=== PATIENT | male | born 2000 ===

== ENCOUNTER 2019-12-12 11:47 | Emergency (ER) | payer BC ==
[2019-12-12 13:39] LABS: BLOOD UREA NITROGEN,BUN 11 mg/dL (7.0-18.0); CARBON DIOXIDE,CO2 31.7 mmol/L (21.0-32.0); CHLORIDE,CL 100 mmol/L (98-107); GLUCOSE RANDOM 103 mg/dL (74-106); POTASSIUM,K 4.2 mmol/L (3.5-5.1); SODIUM,NA 137 mmol/L (136-148)
--- NOTE | 2019-12-12 14:03 | CR ---
Indication: Syncope. Technique: AP portable views of the chest. Comparison: None Findings: The heart is normal size. The lungs are hyperinflated. No infiltrate, pleural effusion, or pneumothorax is identified. Impression: Hyperinflation. Dictated by Susan Norton MD @ Dec 12 2019 2:02PM Signed by Dr. Susan Norton @ Dec 12 2019 2:03PM
--- NOTE | 2019-12-12 14:09 | CT ---
INDICATION: Dizziness COMPARISON: none TECHNIQUE: A CT volumetric acquisition was performed of the brain without IV contrast. FINDINGS: There is no evidence of a subdural or epidural hematoma. There is no evidence of subarachnoid hemorrhage or intraparenchymal bleeding. The CT images reveal a normal appearance of the cerebral ventricles and basal cisterns. There is no evidence of localized tissue infarction or mass effect. There is normal gerber white matter differentiation. The mastoid air cells and middle ear cavities are clear. The calvarium appears intact. There is normal aeration of the visualized paranasal sinuses. IMPRESSION: Negative head CT. Please note that all CT scans at this facility use dose modulation, iterative reconstruction, and/or weight-based dosing when appropriate to reduce radiation dose to as low as reasonably achievable. Dictated by Betito Ash MD @ Dec 12 2019 1:57PM Signed by Dr. Betito Ash @ Dec 12 2019 2:07PM
[2019-12-12] MEDS ORDERED: Ketorolac 60 MG/2 ML SDV IM ONE (14:19)
--- NOTE | 2019-12-12 14:27 | EDM.PDOC ---
ED HPI GENERAL MEDICAL PROBLEM - General Chief Complaint: General Stated Complaint: BLACKED OUT; LEG PAIN Time Seen by Provider: 12/12/19 11:54 Source of Information: Reports: Patient History Limitations: Reports: No Limitations - History of Present Illness INITIAL COMMENTS - FREE TEXT/NARRATIVE: HISTORY AND PHYSICAL: History of present illness: Patient is a 19-year-old male who presents to the ED today with concern of a syncopal event that occurred yesterday morning during a work meeting. Patient states he was standing still for about an hour when he began to feel lightheaded and like he was going to lose consciousness. Patient states that he did lose consciousness and fell on the ground and hit his head. Patient states he was told by a coworker he was unconscious for a brief second before he regained consciousness. Patient states that he has an abrasion to the left side of his face but states he does not have any pain of this area. Patient states when he woke up this morning, the back of his leg muscles felt like they were "spasming "which he feels like is related to the fall. Patient denies any knee pain but states his hamstring muscles feel tight and painful to massage them. Patient denies any health history. Patient denies fever, chills, chest pain, shortness of breath, or cough. Denies headache, neck stiff ness, change in vision. Denies nausea, vomiting, abdominal pain, diarrhea, constipation, or dysuria. Has not noted any blood in urine or stool. Patient has been eating and drinking appropriately. Review of systems: As per history of present illness and below otherwise all systems reviewed and negative. Past medical history: As per history of present illness and as reviewed below otherwise noncontributory. Surgical history: As per history of present illness and as reviewed below otherwise noncontributory. Social history: See social history for further information Family history: As per history of present illness and as reviewed below otherwise noncontributory. Physical exam: General: Patient is alert, oriented, and in no acute distress. Patient sitting comfortably on exam table. HEENT: There is a superficial abrasion over the patient's left zygomatic bone without crepitus, step-offs, or pain to palpation. Otherwise, atraumatic, normocephalic, pupils equal and reactive bilaterally, negative for conjunctival pallor or scleral icterus, mucous membranes moist, TMs normal bilaterally, throat clear, neck supple, nontender, trachea midline. No drooling or trismus noted. No meningeal signs. No hot potato voice noted. Lungs: Clear to auscultation, breath sounds equal bilaterally, chest nontender. Heart: S1S2, regular rate and rhythm without overt murmur Abdomen: Soft, nondistended, nontender. Negative for masses or hepatosplenomegaly. Negative for costovertebral tenderness. Pelvis: Stable nontender. Genitourinary: Deferred. Rectal: Deferred. Skin: Intact, warm, dry. No lesions or rashes noted. Extremities: No obvious deformity of the complete bilateral lower extremities. Patient does have tenderness with palpation of bilateral hamstring muscle bodies. Patient does have full range of motion of complete bilateral lower extremities without pain or difficulty. Dorsalis pedis and posterior tibial pulses are grossly intact bilaterally with capillary refill less than 2 seconds. Otherwise, atraumatic, negative for cords or calf pain. Neurovascular unremarkable. Neuro: Awake, alert, oriented. Cranial nerves II through XII unremarkable. Cerebellum unremarkable. Motor and sensory unremarkable throughout. Exam nonfocal. Notes: Discussed importance for follow-up with primary care provider. Voices understanding and is agreeable to plan of care. Denies any further questions or concerns at this time. Diagnostics: EKG, CBC, CMP, UA, troponin, CPK, CXR, head/facial bone CT Therapeutics: Toradol Prescription: Diclofenac, Flexeril Impression: Syncope Head injury Hamstring spasm, bilateral Plan: 1. Rest, ice and or heat, elevate the affected areas. You can apply ice and or heat 15 minutes on, 15 minutes off. 2. Tylenol as directed for pain management or discomfort. Take medication as prescribed. You can use diclofenac as directed for pain and discomfort. Do not use any other NSAIDs along with diclofenac such as ibuprofen, aspirin, or naproxen. Caution with using Flexeril. This medication can cause drowsiness so caution when outside of the home. Do not drive any vehicles or heavy equipment while using Flexeril. 3. Follow up with the primary care provider as discussed. Return to the ED as needed and as discussed. Definitive disposition and diagnosis as appropriate pending reevaluation and review of above. Bilateral Leg Pain Score (Numeric/FACES): 7 - Related Data Allergies Allergy/AdvReac Type Severity Reaction Status Date / Time No Known Allergies Allergy Verified 12/12/19 12:35 Home Meds: Home Meds Cyclobenzaprine [Flexeril] 10 mg PO TID PRN #9 tab 12/12/19 [Rx] Diclofenac Sodium [Voltaren] 75 mg PO BIDMEALS PRN #15 tab.cr 12/12/19 [Rx] Past Medical History - Past Health History Medical/Surgical History: Denies Medical/Surgical History HEENT History: Reports: None Neurological History: Reports: None Psychiatric History: Reports: None Endocrine/Metabolic History: Reports: None Dermatologic History: Reports: None - Infectious Disease History Infectious Disease History: Reports: None - Past Surgical History HEENT Surgical History: Reports: Adenoidectomy, Tonsillectomy Neurological Surgical History: Reports: None Musculoskeletal Surgical History: Reports: Shoulder Surgery Social & Family History - Tobacco Use Smoking Status *Q: Unknown Ever Smoked - Caffeine Use Caffeine Use: Reports: None ED ROS GENERAL - Review of Systems Review Of Systems: Comprehensive ROS is negative, except as noted in HPI. ED EXAM, GENERAL - Physical Exam Exam: See Below (see dictation) Course - Vital Signs Last Recorded V/S: Last Vital Signs Temp 97.0 F 12/12/19 12:37 Pulse 70 12/12/19 12:37 Resp 17 12/12/19 12:37 BP 140/61 12/12/19 12:37 Pulse Ox 98 12/12/19 12:37 - Orders/Labs/Meds Orders: Active Orders 24 hr Category Date Time Status EKG Documentation Completion [RC] STAT Care 12/12/19 12:42 Active Max Facial Sinus wo Cont [CT] Routine Exams 12/12/19 14:49 Ordered Labs: Laboratory Tests 12/12/19 12/12/19 12/12/19 Range/Units 13:02 13:02 13:02 WBC 8.98 (4.0-11.0) K/uL RBC 5.19 (4.50-5.90) M/uL Hgb 16.3 (13.0-17.0) g/dL Hct 48.0 (38.0-50.0) % MCV 92.5 (80.0-98.0) fL MCH 31.4 (27.0-32.0) pg MCHC 34.0 (31.0-37.0) g/dL RDW Std Deviation 46.9 (28.0-62.0) fl RDW Coeff of Nigel 14 (11.0-15.0) % Plt Count 210 (150-400) K/uL MPV 9.50 (7.40-12.00) fL Neut % (Auto) 70.4 (48.0-80.0) % Lymph % (Auto) 18.2 (16.0-40.0) % Fergus % (Auto) 9.6 (0.0-15.0) % Eos % (Auto) 1.6 (0.0-7.0) % Baso % (Auto) 0.2 (0.0-1.5) % Neut # (Auto) 6.3 H (1.4-5.7) K/uL Lymph # (Auto) 1.6 (0.6-2.4) K/uL Fergus # (Auto) 0.9 H (0.0-0.8) K/uL Eos # (Auto) 0.1 (0.0-0.7) K/uL Baso # (Auto) 0.0 (0.0-0.1) K/uL Nucleated RBC % 0.0 /100WBC Nucleated RBCs # 0 K/uL Sodium 137 (136-148) mmol/L Potassium 4.2 (3.5-5.1) mmol/L Chloride 100 (98-107) mmol/L Carbon Dioxide 31.7 (21.0-32.0) mmol/L BUN 11 (7.0-18.0) mg/dL Creatinine 1.1 (0.8-1.3) mg/dL Est Cr Clr Drug Dosing 116.60 mL/min Estimated GFR (MDRD) > 60.0 ml/min Glucose 103 (74-106) mg/dL Calcium 9.0 (8.5-10.1) mg/dL Total Bilirubin 0.7 (0.2-1.0) mg/dL AST 24 (15-37) IU/L ALT 32 (14-63) IU/L Alkaline Phosphatase 57 (46-116) U/L Creatine Kinase 127 (26-308) U/L Troponin I < 0.050 (0.000-0.056) ng/mL Total Protein 7.6 (6.4-8.2) g/dL Albumin 4.5 (3.4-5.0) g/dL Globulin 3.1 (2.6-4.0) g/dL Albumin/Globulin Ratio 1.5 (0.9-1.6) Urine Color Urine Appearance Urine pH (5.0-8.0) Ur Specific [place] (1.001-1.035) Urine Protein (NEGATIVE) mg/dL Urine Glucose (UA) (NEGATIVE) mg/dL Urine Ketones (NEGATIVE) mg/dL Urine Occult Blood (NEGATIVE) Urine Nitrite (NEGATIVE) Urine Bilirubin (NEGATIVE) Urine Urobilinogen (<2.0) EU/dL Ur Leukocyte Esterase (NEGATIVE) 12/12/19 Range/Units 13:51 WBC (4.0-11.0) K/uL RBC (4.50-5.90) M/uL Hgb (13.0-17.0) g/dL Hct (38.0-50.0) % MCV (80.0-98.0) fL MCH (27.0-32.0) pg MCHC (31.0-37.0) g/dL RDW Std Deviation (28.0-62.0) fl RDW Coeff of Nigel (11.0-15.0) % Plt Count (150-400) K/uL MPV (7.40-12.00) fL Neut % (Auto) (48.0-80.0) % Lymph % (Auto) (16.0-40.0) % [place] % (Auto) (0.0-15.0) % Eos % (Auto) (0.0-7.0) % Baso % (Auto) (0.0-1.5) % Neut # (Auto) (1.4-5.7) K/uL Lymph # (Auto) (0.6-2.4) K/uL [place] # (Auto) (0.0-0.8) K/uL Eos # (Auto) (0.0-0.7) K/uL Baso # (Auto) (0.0-0.1) K/uL Nucleated RBC % /100WBC Nucleated RBCs # K/uL Sodium (136-148) mmol/L Potassium (3.5-5.1) mmol/L Chloride (98-107) mmol/L Carbon Dioxide (21.0-32.0) mmol/L BUN (7.0-18.0) mg/dL Creatinine (0.8-1.3) mg/dL Est Cr Clr Drug Dosing mL/min Estimated GFR (MDRD) ml/min Glucose (74-106) mg/dL Calcium (8.5-10.1) mg/dL Total Bilirubin (0.2-1.0) mg/dL AST (15-37) IU/L ALT (14-63) IU/L Alkaline Phosphatase (46-116) U/L Creatine Kinase (26-308) U/L Troponin I (0.000-0.056) ng/mL Total Protein (6.4-8.2) g/dL Albumin (3.4-5.0) g/dL Globulin (2.6-4.0) g/dL Albumin/Globulin Ratio (0.9-1.6) Urine Color YELLOW Urine Appearance CLEAR Urine pH 8.0 (5.0-8.0) Ur Specific [place] 1.015 (1.001-1.035) Urine Protein NEGATIVE (NEGATIVE) mg/dL Urine Glucose (UA) NEGATIVE (NEGATIVE) mg/dL Urine Ketones NEGATIVE (NEGATIVE) mg/dL Urine Occult Blood NEGATIVE (NEGATIVE) Urine Nitrite NEGATIVE (NEGATIVE) Urine Bilirubin NEGATIVE (NEGATIVE) Urine Urobilinogen 0.2 (<2.0) EU/dL Ur Leukocyte Esterase NEGATIVE (NEGATIVE) Meds: Medications Discontinued Medications Generic Name Dose Route Start Last Admin Trade Name Freq PRN Reason Stop Dose Admin Ketorolac Tromethamine 60 mg 12/12/19 14:19 12/12/19 14:41 Toradol IM 12/12/19 14:20 60 mg ONETIME ONE Administration Departure - Departure Time of Disposition: 14:53 Disposition: Home, Self-Care 01 Clinical Impression: Syncope Qualifiers: Syncope type: unspecified Qualified Code(s): R55 - Syncope and collapse Head injury Qualifiers: Encounter type: initial encounter Qualified Code(s): S09.90XA - Unspecified injury of head, initial encounter Hamstring strain Qualifiers: Encounter type: initial encounter Laterality: unspecified laterality Qualified Code(s): S76.319A - Strain of muscle, fascia and tendon of the posterior muscle group at thigh level, unspecified thigh, initial encounter - Discharge Information Prescriptions: Cyclobenzaprine [Flexeril] 10 mg PO TID PRN #9 tab PRN Reason: Spasms Diclofenac Sodium [Voltaren] 75 mg PO BIDMEALS PRN #15 tab.cr PRN Reason: Pain Referrals: PCP,None [Primary Care Provider] - Forms: ED Department Discharge Additional Instructions: The following information is given to patients seen in the emergency department who are being discharged to home. This information is to outline your options for follow-up care. We provide all patients seen in our emergency department with a follow-up referral. The need for follow-up, as well as the timing and circumstances, are variable depending upon the specifics of your emergency department visit. If you don't have a primary care physician on staff, we will provide you with a referral. We always advise you to contact your personal physician following an emergency department visit to inform them of the circumstance of the visit and for follow-up with them and/or the need for any referrals to a consulting specialist. The emergency department will also refer you to a specialist when appropriate. This referral assures that you have the opportunity for follow-up care with a specialist. All of these measure are taken in an effort to provide you with optimal care, which includes your follow-up. Under all circumstances we always encourage you to contact your private physician who remains a resource for coordinating your care. When calling for follow-up care, please make the office aware that this follow-up is from your recent emergency room visit. If for any reason you are refused follow-up, please contact the [facility] Emergency Department at and asked to speak to the emergency department charge nurse. [facility] [address] [place] [id number] [address] [id number] 1. Rest, ice and or heat, elevate the affected areas. You can apply ice and or heat 15 minutes on, 15 minutes off. 2. Tylenol as directed for pain management or discomfort. Take medication as prescribed. You can use diclofenac as directed for pain and discomfort. Do not use any other NSAIDs along with diclofenac such as ibuprofen, aspirin, or naproxen. Caution with using Flexeril. This medication can cause drowsiness so caution when outside of the home. Do not drive any vehicles or heavy equipment while using Flexeril. 3. Follow up with the primary care provider as discussed. Return to the ED as needed and as discussed. Sepsis Event Note (ED) - Evaluation Sepsis Screening Result: No Definite Risk - Focused Exam Vital Signs: Vital Signs Temp Pulse Resp BP Pulse Ox 12/12/19 12:37 97.0 F 70 17 140/61 98 - My Orders Last 24 Hours: My Active Orders 12/12/19 12:42 EKG Documentation Completion [RC] STAT - Assessment/Plan Last 24 Hours: My Active Orders 12/12/19 12:42 EKG Documentation Completion [RC] STAT
--- NOTE | 2019-12-12 15:45 | CT ---
INDICATION: Face injury from fall TECHNIQUE: CT orbits without i.v. contrast. Coronal and sagittal reformats were obtained. COMPARISON: None FINDINGS: Bone: No acute fractures or aggressive bone lesions are identified. Joint: The temporomandibular joints are unremarkable in appearance. Sinus: The sinuses are well-aerated with no significant mucosal thickening or retained secretions seen. The ostiomeatal units are patent. The nasal turbinates are normal. The nasal septum is midline and intact. Orbit: The visualized orbits are grossly unremarkable. Soft tissue: Unremarkable. IMPRESSION: 1. No acute osseous injuries or abnormalities are seen. Please note that all CT scans at this facility use dose modulation, iterative reconstruction, and/or weight-based dosing when appropriate to reduce radiation dose to as low as reasonably achievable. Dictated by: Magnus Felix MD @ 12/12/2019 15:44:30 (Electronically Signed)
== END 2019-12-12 15:08 | disposition home or self-care (01) ==
LOC: MW.ED 11:47
DX: R55 Syncope and collapse (principal); S09.90XA Unspecified injury of head, initial encounter; S76.312A Strain of muscle, fascia and tendon of the posterior muscle group at thigh level, left thigh, initial encounter; S76.311A Strain of muscle, fascia and tendon of the posterior muscle group at thigh level, right thigh, initial encounter; S00.81XA Abrasion of other part of head, initial encounter; W22.8XXA Striking against or struck by other objects, initial encounter
CPT/HCPCS: 36415; 70450; 70480; 71045; 80053; 81003; 82550; 84484; 85025; 93005; 96372; 99284; J1885; 99283